=== PATIENT | female | born 1980 | race Two or more races ===

== ENCOUNTER 2017-01-11 04:32 | Emergency (ER) | payer SELFPAY ==
[~2017-01-11] VITALS: Ht 154.9 cm; Wt 54.4 kg
[2017-01-11 04:32] VITALS: BP 139/87
== END 2017-01-11 04:55 | disposition home or self-care (01) ==
LOC: ER 04:38
DX: M54.5 Low back pain (principal); G89.29 Other chronic pain
CPT/HCPCS: A4606; Z7610

== ENCOUNTER 2017-07-29 23:30 | Emergency (ER) | payer OTHER ==
[~2017-07-29] VITALS: Ht 154.9 cm; Wt 54.4 kg
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
[2017-07-30 00:10] VITALS: BP 142/89
[2017-07-30] MEDS ORDERED: IBUPROFEN 600 MG TABLET PO ONE ×2 (00:18→00:30)
--- NOTE | 2017-07-30 00:20 | NUR ---
PT REFUSED TO SPEAK TO POLICE. "I DO NOT WANT TO TALK TO THEM. I DO NOT WANT TO GET IN ANY TROUBLE"
--- NOTE | 2017-07-30 00:23 | NUR ---
PT HAS BEEN D/C AFTER RECEIVING PAIN MEDICATION. STABLE CONDITION AND STATED SHE DID NOT WANT TO TALK TO THE POLICE.
== END 2017-07-30 00:27 | disposition other institution (70) ==
LOC: ER 23:32
DX: S09.90XA Unspecified injury of head, initial encounter (principal); G89.29 Other chronic pain; Z60.2 Problems related to living alone; Y04.2XXA Assault by strike against or bumped into by another person, initial encounter; Y93.89 Activity, other specified; Y92.89 Other specified places as the place of occurrence of the external cause; Y99.8 Other external cause status
CPT/HCPCS: A4606; Z7610